=== PATIENT | female | born 1935 | race American Indian/Alaskan Native ===

== ENCOUNTER 2017-06-13 09:03 | Outpatient (CLI) | payer MEDICARE ==
--- NOTE | 2017-06-14 13:31 | Vascular Lab Report ---
RIGHT UPPER EXTREMITY VENOUS DUPLEX: REASON FOR EXAM: Pain and swelling of the right upper extremity COMMENTS ON THE RIGHT: All arm veins visualized are freely compressible without evidence of internal echogenicity. The subclavian and internal jugular veins are free of thrombus. Flow is spontaneous and phasic throughout. COMMENTS ON THE LEFT: The subclavian and internal jugular veins are free of thrombus. IMPRESSION: No evidence of acute or chronic deep venous thrombosis in the right upper extremity.
== END 2017-06-13 09:04 | disposition home or self-care (01) ==
LOC: VAS 09:03
PROVIDERS: ATTEND Internal Medicine
DX: M79.601 Pain in right arm (principal); M79.89 Other specified soft tissue disorders; R22.32 Localized swelling, mass and lump, left upper limb